=== PATIENT | male | born 1955 | race Caucasian/White ===

== ENCOUNTER 2022-11-20 07:08 | Day surgery (SDC) | payer MEDICARE ==
[~2022-11-20 07:08] MED LIST: Lactated Ringers 1,000 ML IV SCH
[2022-11-20] MEDS ORDERED: fentaNYL 100 MCG/2 ML SDV ONE (07:25)
[2022-11-20] MEDS ORDERED: Propofol 200 MG/20 ML SDV ONE (07:25)
== END 2022-11-20 10:05 | disposition home or self-care (01) ==
LOC: MW.SDS 07:08
PROVIDERS: ATTEND Surgery
DX: Z12.11 Encounter for screening for malignant neoplasm of colon (principal); D12.6 Benign neoplasm of colon, unspecified; K62.1 Rectal polyp; K57.30 Diverticulosis of large intestine without perforation or abscess without bleeding; I10 Essential (primary) hypertension; E10.9 Type 1 diabetes mellitus without complications; E66.9 Obesity, unspecified; E78.00 Pure hypercholesterolemia, unspecified; Z68.35 Body mass index [BMI] 35.0-35.9, adult; Z79.899 Other long term (current) drug therapy; Z98.890 Other specified postprocedural states; Z87.442 Personal history of urinary calculi; Z79.84 Long term (current) use of oral hypoglycemic drugs
CPT/HCPCS: 45380; 82947; J2704; J3010; J7120

== ENCOUNTER 2023-07-17 10:57 | Emergency (ER) | payer MEDICARE ==
[2023-07-17] MEDS ORDERED: Ondansetron 4 MG/2 ML SDV IVPUSH ONE (11:11)
[2023-07-17] MEDS ORDERED: Morphine 4 MG/ML Syringe IVPUSH ONE (11:11)
[2023-07-17] MEDS ORDERED: Sodium Chloride 0.9% 2.5 ML Syringe FLUSH PRN (11:11)
[2023-07-17] MEDS ORDERED: Sodium Chloride 0.9% 10 ML Syringe FLUSH PRN (11:11)
[2023-07-17] MEDS ORDERED: Sodium Chloride 0.9% 1,000 ML IV ONE ×2 (11:11→11:46)
[2023-07-17 11:18] LABS: BASOPHILS PERCENT AUTO 0.1 % (0.0-1.5); EOSINOPHILS ABSOLUTE AUTO 0.1 K/uL (0.0-0.7); EOSINOPHILS PERCENT AUTO 0.3 % (0.0-7.0); HEMATOCRIT 48.8 % (38.0-50.0); HEMOGLOBIN 17.3 g/dL (13.0-17.0); LYMPHOCYTES ABSOLUTE AUTO 1.5 K/uL (0.6-2.4); LYMPHOCYTES PERCENT AUTO 9.3 % (16.0-40.0); MEAN CORPUSCULAR HEMOGLOBIN 32.2 pg (27.0-32.0); MEAN CORPUSCULAR HGB CONC 35.5 g/dL (31.0-37.0); MEAN CORPUSCULAR VOLUME 90.9 fL (80.0-98.0); MONOCYTES ABSOLUTE AUTO 1.3 K/uL (0.0-0.8); NEUTROPHILS PERCENT AUTO 82.3 % (48.0-80.0); NRBC ABSOLUTE 0 K/uL; PLATELET COUNT,PLT 194 K/uL (150-400); RED BLOOD CELL COUNT 5.37 M/uL (4.50-5.90); WHITE BLOOD CELL COUNT,WBC 15.74 K/uL (4.0-11.0)
[2023-07-17 11:18] LABS: APPEARANCE,URINE CLEAR; COLOR,URINE YELLOW; GLUCOSE,URINE 100 mg/dL (NEGATIVE); KETONES,URINE TRACE mg/dL (NEGATIVE); LEUKOCYTE ESTERASE,URINE NEGATIVE (NEGATIVE); NITRITE,URINE NEGATIVE (NEGATIVE); OCCULT BLOOD,URINE SMALL (NEGATIVE); PROTEIN,URINE 30 mg/dL (NEGATIVE); UROBILINOGEN,URINE 0.2 EU/dL (<2.0)
[2023-07-17 11:23] LABS: BILIRUBIN,URINE SMALL (NEGATIVE)
[2023-07-17 11:24] LABS: BACTERIA,URINE RARE (NEGATIVE); EPITHELIAL CELLS,URINE RARE (NONE-FEW); RBC,URINE 0-2 (0-2/HPF); WBC,URINE 0-1 (0-5/HPF)
[2023-07-17 11:33] LABS: A/G RATIO 0.8 (0.9-1.6); ALBUMIN 3.8 g/dL (3.4-5.0); BILIRUBIN TOTAL 0.8 mg/dL (0.2-1.0); CALCIUM 9.3 mg/dL (8.5-10.1); CARBON DIOXIDE,CO2 25.2 mmol/L (21.0-32.0); CREATININE 2.6 mg/dL (0.8-1.3); EST CRCL DRUG DOSING (CG) 24.31 mL/min; POTASSIUM,K 4.2 mmol/L (3.5-5.1); PROTEIN TOTAL,TP 8.5 g/dL (6.4-8.2)
[2023-07-17] MEDS ORDERED: Cefepime 2 GM Vial IVPUSH ONE (11:35)
[2023-07-17] MEDS ORDERED: Water For Injection, Sterile 20 ML ONE (11:43)
[2023-07-17] MEDS ORDERED: Naloxone 0.4 MG/ML SDV IVPUSH PRN (12:28)
[2023-07-17] MEDS ORDERED: Morphine 2 MG/ML SYRINGE IVPUSH ONE (12:28)
== END 2023-07-17 15:29 ==
LOC: MW.ED 10:57
DX: A41.9 Sepsis, unspecified organism (principal); E11.22 Type 2 diabetes mellitus with diabetic chronic kidney disease; I12.9 Hypertensive chronic kidney disease with stage 1 through stage 4 chronic kidney disease, or unspecified chronic kidney disease; N18.9 Chronic kidney disease, unspecified; N17.9 Acute kidney failure, unspecified; N13.2 Hydronephrosis with renal and ureteral calculous obstruction; E66.9 Obesity, unspecified; Z68.37 Body mass index [BMI] 37.0-37.9, adult; Z79.84 Long term (current) use of oral hypoglycemic drugs; Z79.899 Other long term (current) drug therapy; Z86.16 Personal history of COVID-19
CPT/HCPCS: 36415; 74176; 80053; 81001; 83605; 83690; 85025; 87040; 96361; 96374; 96375; 96376; 99285; J0692; J2270; J2405; J3490; J7030; 99291